=== PATIENT | male | born 1960 | race Caucasian/White ===

== ENCOUNTER 2018-08-10 13:18 | Emergency (ER) | payer OTHER ==
--- NOTE | 2018-08-10 14:06 | ER Document Report ---
ED Medical Screen (RME) - General Chief Complaint: Foot Pain Stated Complaint: RIGHT FOOT PAIN, SWELLING Time Seen by Provider: 08/10/18 14:02 Notes: 58 years old male with a history of heavy smoking presents today with right foot redness swelling and fifth toe blackish discoloration. Going on for a month. No fever chills or other constitutional symptoms. Right foot distal half is erythematous and warm and tender to touch. Fifth toe has blackish discoloration TRAVEL OUTSIDE OF THE [place] IN LAST 30 DAYS: No - Related Data Allergies/Adverse Reactions: No Known Allergies Allergy (Verified 08/10/18 13:21) Past Medical History Renal/ Medical History: Denies: Hx Peritoneal Dialysis - Immunizations Hx Diphtheria, Pertussis, Tetanus Vaccination: Yes History of Influenza Vaccine for 03/2017 - 08/2017 Season: No Physical Exam - Vital signs Vitals: Temp Pulse Resp BP Pulse Ox 97.8 F 59 L 18 144/76 H 100 08/10/18 13:34 08/10/18 13:34 08/10/18 13:34 08/10/18 13:34 08/10/18 13:34 Course - Vital Signs Vital signs: Temp Pulse Resp BP Pulse Ox 97.8 F 59 L 18 144/76 H 100 08/10/18 13:34 08/10/18 13:34 08/10/18 13:34 08/10/18 13:34 08/10/18 13:34
[2018-08-10 14:39] LABS: ABSOLUTE BASOPHILS # (AUTO) 0.1 10^3/uL (0.0-0.2); ABSOLUTE EOSINOPHILS # (AUTO) 0.6 10^3/uL (0.0-0.6); ABSOLUTE MONOCYTES (AUTO) 0.9 10^3/uL (0.1-1.4); ABSOLUTE NEUT (AUTO) 8.5 10^3/uL (1.7-8.2); BASOPHILS % (AUTO) 1.1 % (0-2); EOSINOPHILS % (AUTO) 4.9 % (0-6); HEMATOCRIT 40.7 % (37.9-51.0); LYMPHOCYTES % (AUTO) 16.5 % (13-45); MEAN CORPUSCULAR HEMOGLOBIN 32.8 pg (27.0-33.4); MEAN CORPUSCULAR HGB CONC 34.4 g/dL (32.0-36.0); MEAN CORPUSCULAR VOLUME 95 fl (80-97); MONOCYTES % (AUTO) 7.5 % (3-13); PLATELET COUNT 342 10^3/uL (150-450); RED BLOOD COUNT 4.27 10^6/uL (4.35-5.55); RED CELL DISTRIBUTION WIDTH 12.9 % (11.5-14.0); TOTAL CELLS COUNTED % (AUTO) 100 %; WHITE BLOOD COUNT 12.2 10^3/uL (4.0-10.5)
[2018-08-10 15:00] LABS: ALANINE AMINOTRANSFERASE 20 U/L (21-72); ALBUMIN 3.7 g/dL (3.5-5.0); ALKALINE PHOSPHATASE 76 U/L (38-126); ANION GAP 8 (5-19); ASPARTATE AMINO TRANSFERASE 13 U/L (17-59); BILIRUBIN,DIRECT 0.1 mg/dL (0.0-0.4); BILIRUBIN,TOTAL 0.3 mg/dL (0.2-1.3); BLOOD UREA NITROGEN 18 mg/dL (7-20); CALCIUM 9.3 mg/dL (8.4-10.2); CARBON DIOXIDE 28 mmol/L (22-30); CHLORIDE 105 mmol/L (98-107); GLUCOSE 82 mg/dL (75-110); POTASSIUM 4.4 mmol/L (3.6-5.0); SODIUM 140.9 mmol/L (137-145); TOTAL PROTEIN 6.6 g/dL (6.3-8.2)
[2018-08-10] MEDS ORDERED: MORPHINE SULFATE 10 MG/ML INJ IV ONE (15:23)
[2018-08-10] MEDS ORDERED: ONDANSETRON HCL INJ/PF 4 MG/2 ML SDV IV ONE (15:24)
[2018-08-10 15:45] LABS: INTERNATIONAL RATION (INR) 0.87; PROTHROMBIN TIME 12.3 SEC (11.4-15.4)
[2018-08-10 15:46] LABS: PARTIAL THROMBOPLASTIN TIME 33.4 SEC (23.5-35.8)
[2018-08-10] MEDS ORDERED: MORPHINE SULFATE 10 MG/ML INJ IM ONE (15:54)
[2018-08-10] MEDS ORDERED: ONDANSETRON 4 MG TAB.RAPDIS PO ONE (15:54)
--- NOTE | 2018-08-10 16:59 | XCELERA REPORT ---
[address] [address] Lower Extremity Arterial Evaluation Name: GREGORY ZURITA Age: 58 yrs Gender: Male : 1960 Patient Status: Preadmit Patient Location: ER Study Date: 08/10/2018 03:52 PM Procedure: A color flow and duplex scan of the lower extremity arteries was performed on the right with velocity and waveform anaylsis. Reason For Study: Peripheral vascular disease/toe gangrene Ordering Physician: LORI Performed By: Mukesh Chowdhury Measurements and Calculations Right Left INTAKE WORKER PSV 52.2 cm/sec Prox Pop A PSV 12.8 cm/sec Dist Pop A PSV -21.6 cm/sec Dist KOFFI PSV 21.6 cm/sec Dist GARDENING MANAGER PSV 13.8 cm/sec Sebastian Pedis PSV -9.6 -43.4 cm/sec Right Side Arterial Evaluation Low normal velocity and monophasic waveforms noted in the Common Femoral artery off a patent, corrugated(? Dacron) graft . Graft to the Popliteal( ? sequential Fem Pop, has occasionally Colour flow. Distally monophasic flow is severely low, trickle flow at the ankle. Ankle Brachial index not done. Left Side Arterial Evaluation Biphasic , moderately diminished flow with moderate spectral broadening at the Dorsalis Pedis. Interpretation Summary Severe hemodynamically significant lesions in the right lower extremity only, on duplex imaging, at rest. On the right, probably old Aorta Femoral Dacron graft with sequential Fem Popliteal graft. Aorta Femoral patent with some compromise. Fem Pop closed or with very little flow. Extremely limited flow at the ankle. compatible with sever ischemia. On the left moderately severe disease suggested on very limited evaluation. : MARTI^RODRIGO > Jamie Cunha
--- NOTE | 2018-08-10 19:19 | ER Document Report ---
ED Extremity Problem, Lower - General Chief Complaint: Foot Pain Stated Complaint: RIGHT FOOT PAIN, SWELLING Time Seen by Provider: 08/10/18 14:02 TRAVEL OUTSIDE OF THE [place] IN LAST 30 DAYS: No - HPI Notes: Patient presents emergency department for evaluation of right foot swelling and a black right fifth toe. He states his been going on for 30 days. He states is not been getting better or worse. He denies any injuries. He states he has some numbness in his toes but he also has intermittent pain. He states he has had redness there for about 30 days as well. No fevers or chills, no nausea or vomiting. He is currently not taking any medications. He continues to smoke. - Related Data Allergies/Adverse Reactions: No Known Allergies Allergy (Verified 08/10/18 13:21) Past Medical History - Social History Smoking Status: Current Every Day Smoker Frequency of alcohol use: Occasional Drug Abuse: Marijuana Family History: Arthritis, Hypertension, Malignancy, Thyroid Disfunction. denies: CAD, COPD, CVA, DM, Hyperlipidemia Patient has suicidal ideation: No Patient has homicidal ideation: No - Past Medical History Cardiac Medical History: Reports: Hx Peripheral Vascular Disease Renal/ Medical History: Denies: Hx Peritoneal Dialysis Past Surgical History: Reports: Hx Vascular Surgery - Immunizations Hx Diphtheria, Pertussis, Tetanus Vaccination: Yes Review of Systems - Review of Systems Constitutional: No symptoms reported EENT: No symptoms reported Cardiovascular: See HPI Respiratory: No symptoms reported Gastrointestinal: No symptoms reported Genitourinary: No symptoms reported Musculoskeletal: See HPI Skin: See HPI Neurological/Psychological: No symptoms reported Physical Exam - Vital signs Vitals: Temp Pulse Resp BP Pulse Ox 97.8 F 59 L 18 144/76 H 100 08/10/18 13:34 08/10/18 13:34 08/10/18 13:34 08/10/18 13:34 08/10/18 13:34 - Notes Notes: Vital signs reviewed, please refer to chart. Patient is normocephalic, atraumatic. Pupils equal round, reactive to light. Neck is supple without meningismus. Heart is regular rate and rhythm. Lungs reveal scant expiratory wheezes throughout. Abdomen is soft, nontender, normoactive bowel sounds throughout. Extremities 2+ ankle edema bilaterally. Examination of the right foot yields diffuse erythema. The right fifth phalanx is blackened. There is diminished sensation. Toes are cool to the touch. Unable to palpate dorsalis pedis or posterior tibial pulses. Peripheral pulses are equal. Skin is warm and dry. Patient is awake, alert, neurological exam is nonfocal. Course - Re-evaluation Re-evalutation: 08/10/18 19:16 Presents emergency department for evaluation. He was medicated as above. His laboratory visitations are largely unremarkable. The patient continues to smoke and he was counseled the importance of quitting given the severity of his peripheral artery disease. I did speak with , on-call vascular surgeon at [facility]. He usually sees Dr. Pizarro. We discussed this patient. We discussed the 30-day chronicity of his symptoms. He states that the patient should be seen as an outpatient but he does not see any need for emergent evaluation. I tend to agree. I did ask Dr. Molina regarding occasions. He states that he believes he should be handled by his office. I explained this to the patient. He will be contacted by the vascular surgeons office tomorrow for further evaluation. He is to return to the ED with worsening or new concerning symptoms. Otherwise toe was cleansed and dressed, patient was discharged in stable condition. 08/10/18 19:19 - Vital Signs Vital signs: Temp Pulse Resp BP Pulse Ox 97.8 F 59 L 18 144/76 H 100 08/10/18 13:34 08/10/18 13:34 08/10/18 13:34 08/10/18 13:34 08/10/18 13:34 - Laboratory Result Diagrams: 08/10/18 14:24 08/10/18 14:24 Laboratory results interpreted by me: 08/10/18 08/10/18 14:24 14:24 WBC 12.2 H RBC 4.27 L Absolute Neutrophils 8.5 H AST 13 L ALT 20 L - Diagnostic Test Radiology reviewed: Reports reviewed - Trickle flow to right foot. Diminished flow through aortofemoral graft, likely mostly occluded Discharge - Discharge Clinical Impression: Peripheral arterial occlusive disease Condition: Stable Additional Instructions: You will be contacted tomorrow by her vascular surgeon's office. If you do not hear from them by the afternoon, call them for further evaluation. Try to quit smoking. Return to the emergency department with worsening or new concerning symptoms of any sort. Forms: Smoking Cessation Education
[2018-08-10 20:15] VITALS: BP 171/85
== END 2018-08-10 20:17 | disposition home or self-care (01) ==
LOC: ER 13:18
DX: I77.9 Disorder of arteries and arterioles, unspecified (principal); M79.671 Pain in right foot; F17.200 Nicotine dependence, unspecified, uncomplicated
CPT/HCPCS: 99284; 96372; 36415; 87040; 85025; 85610; 85730; 80053; 93926 ×2; S0119; J2270

== ENCOUNTER 2018-11-24 10:54 | Emergency (ER) | payer OTHER ==
--- NOTE | 2018-11-24 11:15 | ER Document Report ---
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 He does state that 3 to 4 weeks ago he also had his last appointment with the surgeon who performed the amputation. He was supposed to go last week but could not get there. He denies any fevers. He admits to drainage from the wound. TRAVEL OUTSIDE OF THE [place] IN LAST 30 DAYS: No - Related Data Allergies/Adverse Reactions: No Known Allergies Allergy (Verified 08/10/18 13:21) Past Medical History - General Information source: Patient - Past Medical History Cardiac Medical History: Reports: Hx Peripheral Vascular Disease Renal/ Medical History: Denies: Hx Peritoneal Dialysis Past Surgical History: Reports: Hx Vascular Surgery - Immunizations Hx Diphtheria, Pertussis, Tetanus Vaccination: Yes History of Influenza Vaccine for 03/2017 - 08/2017 Season: No Review of Systems - Review of Systems Constitutional: No symptoms reported Cardiovascular: See HPI Skin: See HPI Hematologic/Lymphatic: See HPI Physical Exam - Vital signs Vitals: Temp Pulse Resp BP Pulse Ox 98.1 F 83 16 136/80 H 96 11/24/18 10:59 11/24/18 10:59 11/24/18 10:59 11/24/18 10:59 11/24/18 10:59 - Notes Notes: PHYSICAL EXAMINATION: GENERAL: Unkempt, in no acute distress. EXTREMITIES: Below the knee amputation of the right leg SKIN: Warm, Dry, normal turgor, amputation to the right leg with large open necrotic appearing wound with clear/yellow discharge Course - Vital Signs Vital signs: Temp Pulse Resp BP Pulse Ox 98.1 F 83 16 136/80 H 96 11/24/18 10:59 11/24/18 10:59 11/24/18 10:59 11/24/18 10:59 11/24/18 10:59
--- NOTE | 2018-11-24 13:09 | ER Document Report ---
ED Wound - General Chief Complaint: Wound Infection Stated Complaint: MAGOTS IN WOUND Time Seen by Provider: 11/24/18 11:12 Mode of Arrival: Ambulatory Notes: 58-year-old male to the emergency room chief complaint of maggots in his BKA stump. Patient had vascular compromise. Operated on by Dr. Pizarro at [facility] in [facility]. Patient states that he has a home health nurse that has been doing wound care. States that he bumped it recently and the scab fell off. He thinks may be some flies got in there and laid some eggs. He and his home health nurse saw maggots coming out of his wound. He denies any other major symptoms. No fever. It is tripping and oozing some serosanguineous discharge. The BKA was on the right lower extremity. TRAVEL OUTSIDE OF THE [place] IN LAST 30 DAYS: No - HPI Patient complains to provider of: Post surgical bleeding, Post surgical problem Onset/Duration: Gradual Quality of pain: No pain Severity: Mild - Related Data Allergies/Adverse Reactions: No Known Allergies Allergy (Verified 08/10/18 13:21) Past Medical History - General Information source: Patient - Social History Smoking Status: Current Every Day Smoker Cigarette use (# per day): Yes Frequency of alcohol use: Occasional Drug Abuse: Marijuana Family History: Arthritis, Hypertension, Malignancy, Thyroid Disfunction. denies: CAD, COPD, CVA, DM, Hyperlipidemia Patient has suicidal ideation: No Patient has homicidal ideation: No - Past Medical History Cardiac Medical History: Reports: Hx Peripheral Vascular Disease Renal/ Medical History: Denies: Hx Peritoneal Dialysis Past Surgical History: Reports: Hx Vascular Surgery - Immunizations Hx Diphtheria, Pertussis, Tetanus Vaccination: Yes Review of Systems - Review of Systems Notes: Constitutional: denies: Chills, Diaphoresis, Fever, Malaise, Weakness EENT: denies: Eye discharge, Blurred vision, Tearing, Double vision, Nose congestion, Nose discharge, Throat swelling, Mouth pain Cardiovascular: denies: Palpitations, Heart racing, Orthopnea, Dyspnea, Chest pain Respiratory: denies: Cough, Hurts to breathe, Wheezing, Shortness of breath Gastrointestinal: denies: Abdominal pain, Diarrhea, Nausea, Vomiting, Black stools, bright red blood in stool Genitourinary: denies: Burning, Dysuria, Discharge, Frequency, Flank pain, Hematuria Musculoskeletal: denies: Joint pain, Joint swelling, Muscle pain, Muscle stiffness, back pain. Right below the knee amputation with chronic wound Hematologic/Lymphatic: denies: Anemia, Easy bleeding, Easy bruising, Blood clots Neurological/Psychological: denies: Confusion, Dementia, Depression, Loss of consciousness Skin: No lesions, no masses, no skin breakdown, no abscesses. Wound on the right lower extremity. Maggots Physical Exam - Vital signs Vitals: Temp Pulse Resp BP Pulse Ox 98.1 F 83 16 136/80 H 96 11/24/18 10:59 11/24/18 10:59 11/24/18 10:59 11/24/18 10:59 11/24/18 10:59 Interpretation: Normal - General General appearance: Appears well, Alert - Respiratory Respiratory status: No respiratory distress Chest status: Nontender Breath sounds: Normal Chest palpation: Normal - Cardiovascular Rhythm: Regular Heart sounds: Normal auscultation Murmur: No - Extremities General upper extremity: Normal inspection, Nontender, Normal color, Normal ROM, Normal temperature General lower extremity: Other - Normal left lower extremity. Right lower extremity demonstrates a right below the knee amputation with postoperative changes. There is significant amount of soft tissue deformity with signs of chronic wound healing. No active maggots. There is a small amount of serosanguineous discharge dripping on the floor. The extremity is warm to the touch. No lymphangitic streaking. No pustular exudate Course - Re-evaluation Re-evalutation: 11/24/18 13:14 I will attempt to speak to the surgeon that operated on him. At this time I am seeing no evidence of maggots. We will x-ray the stump. He has no fever. He has a normal heart rate. Not hypotensive. And in no significant pain. 11/24/18 13:46 I did speak with the on-call vascular surgeon who is covering for Dr. Pizarro. They had no significant concerns at this point. He has an appointment at 10 AM on November 30. More likely patient just needs wet-to-dry dressing changes and wound care follow-up and can follow-up with the surgeon on the . Patient does not look toxic in any way. Patient was advised to continue to keep the wound covered as to avoid contamination but flies and other insects. 11/24/18 13:54 Knee X-Ray 11/24/18 13:06 IMPRESSION: Postsurgical changes with evidence of soft tissue ulcer. There are lucencies in the remaining fibula nondisplaced fracture cannot be excluded or healing fracture. No conventional radiographic evidence of osteomyelitis. - Vital Signs Vital signs: Temp Pulse Resp BP Pulse Ox 98.1 F 83 16 136/80 H 96 11/24/18 10:59 11/24/18 10:59 11/24/18 10:59 11/24/18 10:59 11/24/18 10:59 Discharge - Discharge Clinical Impression: Maggot infestation Postoperative wound breakdown Qualifiers: Encounter type: initial encounter Qualified Code(s): T81.31XA - Disruption of external operation (surgical) wound, not elsewhere classified, initial encounter Condition: Good Disposition: HOME, SELF-CARE Additional Instructions: At this time we do recommend that you keep the wound covered with wet-to-dry dressings. Please keep it covered to the elements. This will require meticulous wound care for the rest of your life. You also need to clean this daily with soapy water. You can also use hydrogen peroxide and water mix on the wound. Hydrogen peroxide will kill maggots as well. You have a follow-up appointment with Dr. Pizarro at 10 AM on November 30. You can continue to check your dressings daily to make sure that there are no further infestations of maggots. In the event that you begin to develop a fever, redness, swelling, worsening pain or other symptoms then please return for repeat evaluation. Otherwise, follow-up with the surgeon as soon as possible or only scheduled appointment date on 30 November at 10 AM.
--- NOTE | 2018-11-24 13:53 | RADIOLOGY REPORT (SQ) ---
EXAM DESCRIPTION: KNEE RIGHT 4 VIEWS COMPLETED DATE/TIME: 11/24/2018 1:33 pm REASON FOR STUDY: maggots in stump COMPARISON: None. NUMBER OF VIEWS: Four views. TECHNIQUE: AP, lateral, and both oblique radiographic images acquired of the right knee. LIMITATIONS: None. FINDINGS: MINERALIZATION: There is osteopenia. BONES: Postsurgical changes with prior below the knee amputation. There are lucencies in the fibula which could represent healing fracture. There is soft tissue defect. There is no conventional radio graphic evidence of osteomyelitis. JOINT: No effusion. SOFT TISSUES: No soft tissue swelling. No radio-opaque foreign body. OTHER: No other significant finding. IMPRESSION: Postsurgical changes with evidence of soft tissue ulcer. There are lucencies in the rem aining fibula nondisplaced fracture cannot be excluded or healing fracture. No conventional radiogra phic evidence of osteomyelitis. TECHNICAL DOCUMENTATION: JOB ID: [id number] [employer]- All Rights Reserved Reading location - IP/workstation name: [email or web address]
[2018-11-24 14:40] VITALS: BP 169/82
== END 2018-11-24 14:39 | disposition home or self-care (01) ==
LOC: ER 10:54
DX: B88.8 Other specified infestations (principal); T81.31XA Disruption of external operation (surgical) wound, not elsewhere classified, initial encounter; Y83.5 Amputation of limb(s) as the cause of abnormal reaction of the patient, or of later complication, without mention of misadventure at the time of the procedure; F17.210 Nicotine dependence, cigarettes, uncomplicated; Z89.511 Acquired absence of right leg below knee; L97.919 Non-pressure chronic ulcer of unspecified part of right lower leg with unspecified severity; F12.10 Cannabis abuse, uncomplicated
CPT/HCPCS: 99283